=== PATIENT | female | born 1985 | race American Indian/Alaskan Native ===

== ENCOUNTER 2021-04-07 14:04 | Emergency (ER) | payer BC ==
[~2021-04-07] VITALS: Ht 149.9 cm; Wt 47.7 kg
[2021-04-07 14:39] VITALS: BP 114/71; Ht 149.9 cm; Wt 47.7 kg
[2021-04-07 15:45] LABS: SARS-CoV-2 ANTIGEN POSITIVE- SARS-COV-2 (NEGATIVE)
[2021-04-07] MEDS ORDERED: DECADRON4 MG PO (17:13)
== END 2021-04-07 17:28 | disposition home or self-care (01) ==
LOC: D.ER 14:04
PROVIDERS: Emergency Medicine
DX: U07.1 COVID-19 (principal); J02.9 Acute pharyngitis, unspecified